=== PATIENT | male | born 1990 | race Caucasian/White ===

== ENCOUNTER 2022-05-09 12:37 | Emergency (ER) | payer BC ==
[~2022-05-09] VITALS: Ht 185.4 cm; Wt 149.7 kg
[2022-05-09 13:01] VITALS: BP_SYST 128
[2022-05-09] MEDS ORDERED: AUG875 PO (16:33)
[2022-05-09] MEDS ORDERED: IBUP-1971 PO (16:33)
[2022-05-09] MEDS ORDERED: FLUT16SP16 NS (16:33)
[2022-05-09 17:09] VITALS: BP_SYST 132
== END 2022-05-09 17:12 | disposition home or self-care (01) ==
LOC: SED 12:37
DX: J32.0 Chronic maxillary sinusitis (principal); H53.8 Other visual disturbances; Z79.899 Other long term (current) drug therapy
CPT/HCPCS: 70450-TC; 70480; 76376; 82962; 99284

== ENCOUNTER 2023-09-21 12:02 | Emergency (ER) | payer BC, OTHER ==
[~2023-09-21] VITALS: Ht 185.4 cm; Wt 149.7 kg
[2023-09-21 12:02] VITALS: BP_SYST 138; PULSE 96; RESP 19; TEMP 98; O2SAT 97
[~2023-09-21 12:02] MED LIST: AUG875 PO; FLUT16SP16 NS; IBUP-1971 PO; VIS25 PO
[2023-09-21] MEDS: LORazepam 1 MG TABLET PO ONE (12:29)
[2023-09-21] MEDS ORDERED: LORA-259 PO (13:19)
[2023-09-21 13:40] VITALS: BP_SYST 126; PULSE 68; RESP 20; TEMP 97.8; O2SAT 97
== END 2023-09-21 13:41 | disposition home or self-care (01) ==
LOC: SED 12:02
DX: F41.9 Anxiety disorder, unspecified (principal); Z88.0 Allergy status to penicillin; Z79.899 Other long term (current) drug therapy; Z79.2 Long term (current) use of antibiotics
CPT/HCPCS: 99283